=== PATIENT | female | born 1945 | race Caucasian/White ===

== ENCOUNTER → 2020-05-29 14:12 | Outpatient (CLI) | payer MEDICARE, SELFPAY ==
[2020-05-29 16:05] LABS: Add Manual Diff / Slide Review NO; Basophils Absolute Auto 0 /uL (0-100); Eosinophils Absolute Auto 200 /uL (0-450); Eosinophils Percent Auto 4.8 % (2-4); Hematocrit 36.4 % (36-46); Hemoglobin 12.2 g/dL (12.0-16.0); Lymphocytes Absolute Auto 1600 /uL (1100-4500); Mean Corpuscular HGB Conc 33.6 % (30-36); Mean Corpuscular Hemoglobin 31.2 PG (26-34); Mean Corpuscular Volume 92.8 fL (80-100); Monocytes Absolute Auto 400 /uL (0-900); Monocytes Percent Auto 8.1 % (3-14); Neutrophils Absolute Auto 2500 /uL (1500-7000); Neutrophils Percent Auto 53.1 % (50-75); Platelet Count 199 X10^3/uL (150-400); Red Blood Cell Count 3.92 X10^6/uL (4.0-5.2); Red Cell Distribution Width 12.8 % (11.6-14.8); White Blood Cell Count 4.7 X10^3/uL (4.5-11.0)
== END ==
PROVIDERS: PCP Nurse Practitioner; Referring Provider Orthopaedic Surgery; Visit Provider Orthopaedic Surgery
DX: Z01.818 Encounter for other preprocedural examination (principal); Z01.812 Encounter for preprocedural laboratory examination
CPT/HCPCS: 36415; 85025; 93005

== ENCOUNTER → 2020-06-01 15:28 | Outpatient (CLI) | payer MEDICARE, SELFPAY ==
[2020-06-02 07:43] LABS: COVID19 Sendout Not Detected (Not Detect)
== END ==
PROVIDERS: PCP Nurse Practitioner; Visit Provider Physician Assistant
DX: Z11.59 Encounter for screening for other viral diseases (principal)
CPT/HCPCS: 87635

== ENCOUNTER 2020-06-05 11:30 | Observation (INO) | payer MEDICARE, SELFPAY ==
[2020-05-30 08:01] VITALS: BMI 36.1
[2020-06-04] VITALS (15 sets, daily range): BP systolic 92–133; BP diastolic 52–73; PULSE 53–78; RESP 10–18; TEMP 35.9–36.2; O2SAT 92–100; BMI 35.7
--- NOTE | 2020-06-04 12:45 | DI.RAD.S_ITS ---
PROCEDURE: XR PELVIS 1-2V INDICATIONS: Left CHARLENE TECHNIQUE: 1 view of the lower pelvis acquired. COMPARISON: None. FINDINGS: Bones: Patient is status post left hip arthroplasty, with hardware components in expected positions. The hip joint appears congruent. The visualized bony structures appear intact. Soft tissues: Overlying postoperative changes are noted. No suspicious soft tissue densities. IMPRESSION: Expected postsurgical change for left hip arthroplasty. Dictated by: Fara Telles MD, PhD on 06/05/2020 at 14:56 Approved by: Fara Telles MD, PhD on 06/05/2020 at 14:56
[2020-06-04] MEDS: PREGABALIN 75 MG CAPSULE PO (13:54)
[2020-06-04] MEDS: ACETAMINOPHEN 325 MG TABLET 975 MG PO (13:54)
[2020-06-04] MEDS: LACTATED RINGERS 1,000 ML 42 ML IV (13:57)
--- NOTE | 2020-06-04 14:43 | PM.PREOP ---
Pre-operative Note COVID-19 COVID-19 status: Negative Result date/Date tested (Pos, Neg/Pending): 06/02/20 Interval Note History & Physical reviewed/Exam performed by Physician: Yes Changes to H&P: No
--- NOTE | 2020-06-04 15:28 | SUR.OPER ---
Lateral on padded OR bed. Gel axillary roll. Arms secured on padded armboard with pillow supporting top arm. Padded hip positioner braces x4 - anterior and posterior chest and pelvis. Additional gel pad used anterior pelvis. Gel pad under bottom leg from knee to foot and secured with tape over sheet.
[2020-06-04] MEDS: CEFAZOLIN 2 GM/100 ML FROZ.PIGGY IV (15:44)
[2020-06-04] MEDS: TRANEXAMIC ACID 1,000 MG VIAL 1000 MG INJ ×2 (16:21→17:20)
[2020-06-04] MEDS: ROPIVACAINE 0.5% PF 5 MG/ML 20ML VIAL 60 ML INJ (16:22)
[2020-06-04] MEDS: MORPHINE 4 MG/ML INJ INJ (16:22)
[2020-06-04] MEDS: KETOROLAC 30 MG/ML VIAL INJ (16:24)
--- NOTE | 2020-06-04 17:32 | PM.OP.1 ---
Operative Date/Time/Diagnoses Date of procedure: 06/04/20 Time of procedure: 17:32 Pre-op diagnosis: Left hip degenerative joint disease Post-op diagnosis: same Procedure & Clinicians Procedure: Left total hip arthroplasty (CPT code 50270 with diet assistant) Same procedure as scheduled: Yes Indications: Patient is a 74-year-old female with severe left hip DJD. The patient has pain with activities and at rest, limited ambulation and activity tolerance, difficulties with ADLs, and failure of conservative treatment. We have discussed the nature of condition, treatment options, risks and benefits, and patient elects to proceed with total hip arthroplasty and gives informed consent. Surgeon: Alvin Mckeon Command And Control Officer: Kenna Bright Anesthesia Type: General and Spinal Operative Notes Closure Type: primary Prosthetic devices, grafts, tissues, transplants, or devices: Acetabulum: Chaudhari and Nephew R3 acetabular component size 50 mm Femoral component: Chaudhari and Nephew Anthology stem size 8 with standard offset Femoral head: 32 mm + 8 cobalt chrome Estimated Blood Loss (mL): 200 Blood products transfused: none Procedure in detail: After satisfaction induction of anesthetic, and administration of IV antibiotics, the patient was positioned in the lateral decubitus position with all bony prominences well padded and pelvic position secured using a hip polymerization supervisor positioning device. Left hip and lower extremity prepped and draped in the usual sterile fashion, 1st dose of intravenous tranexamic acid was administered, then a longitudinal incision was created centered over the greater trochanter and carried sharply through the skin and subcutaneous tissues down to the fascia alexander which was divided longitudinally and retracted with a Charnley retractor. External rotators visualize, cut, tagged, and retracted posteriorly, then the capsule was cut in a T-type fashion with the corners tagged and retracted. Hip was dislocated and femoral neck cut made according to preoperative templating. Acetabular retractors then placed, and the acetabular labrum and osteophytes were excised. The acetabulum was then sequentially reamed to 49 mm with an excellent circumferential ream and fit with the trial. The trial component was removed and a permanent size 50 mm Chaudhari and Nephew R3 acetabular component was selected, positioned, and impacted with satisfactory position and fixation achieved. Permanent liner was then inserted with the elevated lip directed posteriorly. Soft tissue then removed off the lateral femoral neck in the lateral neck was entered using a box osteotome. T-handled reamers placed down the canal followed by sequential broaching to 8 with the final broach left in place for trial reduction which demonstrated fair leg length, range of motion, and stability characteristics with a 32 mm +0 trial ball. Another trial was performed with a +4 ball which yielded moderately improved stability with good leg length and range of motion. The trial and broach were removed, and a permanent size 8 Chaudhari and Nephew Anthology stem was selected and inserted with excellent position and fixation achieved. Another trial reduction yielded the above characteristics, and another trial reduction was performed with a +8 ball which yielded even better stability characteristics without undue tightness or over lengthening, so the trial ball was exchanged for a permanent 32 mm +8 cobalt chrome ball. The hip was irrigated and reduced and excellent leg length range of motion and stability characteristics were achieved and maintained. Periarticular tissues were infiltrated with ropivacaine and morphine. The hip was copiously irrigated, and the capsule repaired with #2 Ethibond, and the piriformis was repaired back to the greater trochanter with the same. Fascia alexander closed with interrupted #1 Ethibond sutures, and the subcutaneous tissues were closed in 2 layers of 0 Vicryl and 2 0 Vicryl. Skin was closed with lobo and sterile dressings applied. Second dose of tranexamic acid was administered intravenously, and the anesthetic was terminated. Complications: none Post-operative Condition: stable Disposition: PACU Plan for aftercare: Patient will be admitted to the acute care [facility], and anticipate discharge on postop day 1-2 with follow-up in office in 10-14 days. Outpatient physical therapy will be arranged and patient will continue to observe posterior hip precautions. .
--- NOTE | 2020-06-04 18:15 | SUR.PHASEI ---
Report called to floor RN, pt stable, A&O, plan to transfer upstairs in next 15 minutes
--- NOTE | 2020-06-04 18:34 | SUR.PHASEI ---
Pt transported to room 224 in stable condition sitting up in bed talking taking sporadic drinks of water, handoff to RN in room.
[2020-06-04] MEDS: LACTATED RINGERS 1,000 ML 125 ML IV (19:18)
[2020-06-04] MEDS: DULOXETINE 30 MG CAPSULE PO (21:02)
[2020-06-04] MEDS: GABAPENTIN 600 MG TABLET PO (21:02)
[2020-06-04] MEDS: METOPROLOL ER 50 MG TABLET PO (21:02)
[2020-06-04] MEDS: DOCUSATE 100 MG CAPSULE PO (21:02)
[2020-06-04] MEDS: SIMVASTATIN 20 MG TABLET PO (21:02)
[2020-06-05 00:01] VITALS: BP 132/70; PULSE 59; RESP 16; TEMP 35.8; O2SAT 97
--- NOTE | 2020-06-05 02:23 | PC.NURSE ---
2350 Patient is alert and oriented. Has word finding difficulty which she states is chronic related to hx of head injury. Breath sounds CTA with RA sat of 97%. HRR but bradycardic with rate in 50's. Denies nausea. BT present but denies passing flatus as yet. Has voided on bedpan previous shift; denies dysuria, frequency or urgency. Is able to move herself in bed. Not out of bed as yet so gait not assessed. CMS intact except for some residual numbness in soles of bilateral feet. Wearing bilateral calf SCD's. Denies pain. Reports having fallen in past 3 months so fall risk score is high and alarm is activated.
[2020-06-05 03:10] VITALS: BP 125/74; PULSE 67; RESP 16; TEMP 35.9; O2SAT 96
[2020-06-05] MEDS: LACTATED RINGERS 1,000 ML 125 ML IV (03:29)
[2020-06-05 05:32] LABS: Hematocrit 30.9 % (36-46); Hemoglobin 10.4 g/dL (12.0-16.0)
[2020-06-05] MEDS: CEFAZOLIN 2 GM/100 ML FROZ.PIGGY IV (08:09)
[2020-06-05] MEDS: CHOLECALCIFEROL (VITAMIN D3) 1,000 UNIT TABLET 2000 UNIT PO (08:10)
[2020-06-05] MEDS: DOCUSATE 100 MG CAPSULE PO ×2 (08:10→19:15)
[2020-06-05] MEDS: DULOXETINE 30 MG CAPSULE PO ×2 (08:10→19:18)
[2020-06-05] MEDS: MULTIVITAMIN 1 TABLET 1 TAB PO (08:10)
[2020-06-05] MEDS: GABAPENTIN 300 MG CAPSULE PO (08:10)
--- NOTE | 2020-06-05 11:02 | PT.IIE ---
Current Diagnoses Unilateral primary osteoarthritis, left hip (06/04/20) Surgery Performed Operation Date: 06/04/20 14:45 Actual Procedures p Total Hip Arthroplasty(Left) - Alvin Mckeon MD Surgical History (Last Updated 05/30/20 @ 09:46 by Marcia Busch RN) History of 2 sections (Acute) History of arthroplasty of left knee (Acute 2010) History of arthroplasty of right knee (Acute 2009) History of bunionectomy of left great toe (Acute) History of hysterectomy (Acute ~1980) History of lumbar spinal fusion (Acute 2006) History of lumbar spinal fusion (Acute 2006) History of radial keratotomy (Acute) History of right salpingo-oophorectomy (Acute) History of surgery (Acute 2008) Hx of LASIK (Acute) Hx of tonsillectomy (Acute) S/P cervical spinal fusion (Acute 2005) Medical History (Last Updated 05/30/20 @ 09:26 by Marcia Busch RN) Anxiety (Acute) Asthma (Acute) Fall from ground level (Acute 2016) HLD (hyperlipidemia) (Acute) HTN (hypertension) (Acute) Osteoarthritis (Acute) Pre-diabetes (Acute) Seasonal allergies (Acute) Short-term memory loss (Acute) Physical Therapy Inpatient Evaluation/Re-Eval M1 PT/OT-IP Prior Functional Status Start: 06/05/20 12:31 Freq: NEEDED Status: Active Protocol: Document 06/05/20 11:02 AB (Rec: 06/05/20 12:44 AB [email or web address]) Medical Review Prior Functional Status Medical History Reviewed Yes Communication able to make needs known Mobility and Gait pt stated that she is modified independent with all mobilities and ambulation using tripod cane Social History Household Members spouse Living Arrangements House Number of Floors (Floors) Two Floors Number of Stairs To Enter/Railing? pt has 4 steps with L rail ascending to enter the house has a chair lift to get to 2nd level bedroom Home Environment Standard Height Toilet,Walk in Shower,Built-In Shower Seat Home Equipment Front Wheel Walker,Straight Cane,Raised Toilet Seat Without Armrests,Hand Held Shower,Grab Bars In Shower Additional Social History Comment pt has a tripod cane M2 PT-IP Current Condition Start: 06/05/20 12:31 Freq: NEEDED Status: Active Protocol: Document 06/05/20 11:02 AB (Rec: 06/05/20 12:44 AB [email or web address]) Physical Therapy Current Condition Current Condition Evaluation Date 06/05/20 Treatment Diagnosis s/p L CHARLENE posterior approach; difficulty in walking Onset Date 06/04/20 Precautions Posterior Hip Precautions No Hip Flexion > 90 degrees,No Hip Internal Rotation,No Hip Adduction Weight Bearing Status Weight Bearing Status Weight Bear as Tolerated Allowed Weight Bearing Amount (enter % WBAT LLE or #) (%) M3 PT-IP Subjective Start: 06/05/20 12:31 Freq: NEEDED Status: Active Protocol: Document 06/05/20 11:02 AB (Rec: 06/05/20 12:44 AB [email or web address]) Subjective Physical Therapy Visit Type Type Initial Evaluation Visit Start Time 11:02 Visit Stop Time 12:02 Total Visit Minutes 60 Number of WOOD MOLDER Visits 0 Physical Therapy Visit Comments Patient Comments c/o increase pain but agreeable to do PT Therapy Pain Assessment Pain When Pain Assessed At Rest Pain Present Pain Present Pain Reported Location back Intensity 7 Scale Used Numeric (0 - 10) Pain Management Techniques Distraction,Modification of Treatment,Re-positioning, Timing of Activity with Medications M4 PT-IP Mobility and Gait Start: 06/05/20 12:31 Freq: NEEDED Status: Active Protocol: Document 06/05/20 11:02 AB (Rec: 06/05/20 12:44 AB [email or web address]) PT-Bed Mobility Assessment Supine to Sit Supine to Sit Maximum Assistance,1 Person Assistance Sit to Supine Sit to Supine Moderate Assistance,1 Person Assistance Scooting Scooting to Edge of Bed Maximum Assistance PT-Transfer Assessment Sit to and From Stand Sit to and from Stand Maximum Assistance,1 Person Assistance,Use of Upper Extremities Equipment Transfer Assistive Device Gait Belt,Front Wheeled Walker Orthotic/Prosthetic Devices or Brace: No Transfers Transfer Destination Bed,Chair Transfer Technique Stand Step Pivot Transfer Ability Level of Assist Moderate Assistance,Maximum Assistance,1 Person Assistance ,Use of Upper Extremities Comments Mobility Comments pt sitting on chair. pt's spouse in room. educated pt and spouse regarding L hip posterior precautions. Pt with h/o TBI and with difficulty recalling precautions and following directions. completed sit to stand max A and cues. ambulated in room ~ 30 ft mod . (+) LOB posteriorly and to the R during ambulation requiring mod/max A for recovery. completed sit to supine mod A and cues. completed supine to sit max A and cues. pt with increase posterior trunk lean in sitting position and requiring mod to max A for sitting balance. required max A for scooting to EOB. completed sit to stand max A and complete step transfer to chair using FWW max A. educated pt on sit<>stand techniques but pt with difficulty following directions requiring max A to complete task. increase posterior LOB during standing requiring mod to max A to keep trunk forward. instructed pt to push down on FWW for support but pt unable to comprehend. assisted pt to the chair requiring max A for controlled descent. pt's spouse stated that pt has balance problems even prior to surgery due to her head injury. positioned pt on chair. call light and table placed within reach. Gait Assessment Gait Gait Assistance Required: Moderate Assistance,Maximum Assistance,1 Person Assist Distance (Feet) 30 Able to Maintain Weight Bearing Status Yes During Gait Assistive Devices Assistive Device Gait Belt,Front Wheeled Walker Orthotic/Prosthetic Devices or Brace: No Gait Deviations General Gait Pattern Antalgic,Decreased Stride Length,Decreased Feet Clearance,Step-to Gait Factors Limiting Gait Function Factors Limiting Gait Function Decreased Activity Tolerance, Decreased Sensation,Decreased Strength,Difficulty Following Directions,Limited Range of Motion,Pain,Poor Balance,Poor Safety Awareness PT-Balance Assessment Sitting Balance and Reactions Static Sitting Balance Ability Fair Dynamic Sitting Balance Ability Fair Standing Balance and Reactions Static Standing Balance Ability Poor Dynamic Standing Balance Ability Poor Device Used FWW M5 PT-IP Objective Assessments Start: 06/05/20 12:31 Freq: NEEDED Status: Active Protocol: Document 06/05/20 11:02 AB (Rec: 06/05/20 12:44 AB [email or web address]) Orientation Orientation/Cognition Level of Alertness Alert Orientation Name,Place,Situation Safety Awareness Decreased Safety Awareness Memory Description Short Term Impaired Gross Range of Motion Lower Extremity ROM Assessment Within Functional Limits Strength Lower Extremity Strength Assessment Left Impaired Hip 3+/5 Knee 4-/5 Sensation Assessment Sensation Light Touch Impaired Proprioception (Position) Impaired Comments Sensation Comments BLE decrease BLE Muscle Tone Muscle Tone WNL Yes M6 PT-IP Treatment Start: 06/05/20 12:31 Freq: NEEDED Status: Active Protocol: Document 06/05/20 11:02 AB (Rec: 06/05/20 12:44 AB [email or web address]) Physical Therapy Treatment Education Education Provided Precautions,Weight Bearing Status,Post-Op Packet,Safety M7 PT-IP Assessment and Plan Start: 06/05/20 12:31 Freq: NEEDED Status: Active Protocol: Document 06/05/20 11:02 AB (Rec: 06/05/20 12:44 AB [email or web address]) PT Summary Assessment and Plan Potential Rehabilitation Potential Good Status of Condition at Evaluation Evolving Summary Impairments Pain,ROM,Strength,Balance, Coordination,Sensation,Tone, Cognition,Bed Mobility, Transfers,Gait,Activity Tolerance Assessment Summary pt requring mod to max A with mobility using FWW and with LOB during standing and ambulation. pt plans to go home with spouse to assist but at this time may require SNF rehab. will continue to assess progress and will conduct caregiver training when appropriate as well as stair climbing training. Goals Bed Mobility Goal Contact Guard Assistance Transfer Goal Contact Guard Assistance,Front Wheeled Walker Gait Goal Contact Guard Assistance,Front Wheel Walker Gait Distance 150 Other Goals up/down 4 steps L rail CGA Days to Meet Goals 5 Frequency of Treatment Frequency Of Treatment Twice a Day Treatment Plan Physical Therapy Treatment Plan Bed Mobility Training,Transfer Training,Gait Training, Therapeutic Exercise,Balance Retraining,Post Op Education, Discharge Planning,Hot or Cold Pack,Neuromuscular Re-ed, Coordination Retraining,Manual Therapy Recommendations To Nursing Amount of Assist Needed 1 Person Assist Discharge Recommendations PT Discharge Recommendations Home with 21/03 Assist,Home Health,SNF Rehab Transportation Needs at Discharge Private Vehicle,Wheelchair/ Cabulance
[2020-06-05] MEDS: OXYCODONE IR 5 MG TABLET PO ×3 (11:26→21:14)
--- NOTE | 2020-06-05 12:40 | PM.PNPO.1 ---
Subjective Subjective Date Patient Seen: 06/05/20 Time Patient Seen: 12:40 Interval history: Pain [id number]. Denies fever chills. No nausea /vomiting. Patient did have balance issues with physical therapy this morning. She does not yet feel stable on her feet to go home. Patient's is home to assist her. They have 4 steps into her house. Exam Vital Signs (past 8 hours): Oxygen Delivery Method Room Air Oxygen Flow Rate 0 Narrative Exam Narrative: Pleasant 74-year-old female resting comfortably in bed in no apparent distress. Left hip dressing is clean, dry and intact. Motor functions intact distal bilateral lower extremities. Sensation grossly intact to light touch bilateral lower extremities. Objective Labs Result Diagrams: 06/05/20 05:03 Labs: Laboratory Results - last 24 hr 06/05/20 05:03 Hgb 10.4 L Hct 30.9 L Assessment & Plan Post-op Postoperative Procedures: Procedures Operation Date: 06/04/20 14:45 Actual Procedures Side Surgeon p Total Hip Arthroplasty Left Alvin Mckeon MD Postop day 1 status post left total hip arthroplasty. Mobilize with physical therapy. Posterior hip precautions. Lovenox added. Increase dose of Tylenol. Metformin added b.i.d.. Likely discharge home tomorrow.
[2020-06-05] MEDS: METFORMIN HCL 500 MG TABLET PO ×2 (12:43→19:18)
[2020-06-05] MEDS: ENOXAPARIN 40 MG/0.4 ML SYRINGE SUBCUT (12:43)
--- NOTE | 2020-06-05 13:20 | PT.IPTN ---
Current Diagnoses Unilateral primary osteoarthritis, left hip (06/05/20) Surgery Performed Operation Date: 06/04/20 14:45 Actual Procedures p Total Hip Arthroplasty(Left) - Alvin Mckeon MD Physical Therapy Treatment Note M2 PT-IP Current Condition Start: 06/05/20 12:31 Freq: NEEDED Status: Active Protocol: Document 06/05/20 11:02 AB (Rec: 06/05/20 12:44 AB [email or web address]) Physical Therapy Current Condition Current Condition Evaluation Date 06/05/20 Treatment Diagnosis s/p L CHARLENE posterior approach; difficulty in walking Onset Date 06/04/20 Precautions Posterior Hip Precautions No Hip Flexion > 90 degrees,No Hip Internal Rotation,No Hip Adduction Weight Bearing Status Weight Bearing Status Weight Bear as Tolerated Allowed Weight Bearing Amount (enter % WBAT LLE or #) (%) M3 PT-IP Subjective Start: 06/05/20 12:31 Freq: NEEDED Status: Active Protocol: Document 06/05/20 13:20 AB (Rec: 06/05/20 15:49 AB [email or web address]) Subjective Physical Therapy Visit Type Type Treatment Note Visit Start Time 13:20 Visit Stop Time 14:17 Total Visit Minutes 57 Number of PROGRESS CLERK Visits 0 Physical Therapy Visit Comments Patient Comments pt is agreeable to do PT Therapy Pain Assessment Pain When Pain Assessed At Rest Pain Present Pain Present Pain Reported Location left hip Scale Used pain scale not given but stated better than this morning Pain Management Techniques Distraction,Modification of Treatment,Re-positioning, Timing of Activity with Medications M4 PT-IP Mobility and Gait Start: 06/05/20 12:31 Freq: NEEDED Status: Active Protocol: Document 06/05/20 13:20 AB (Rec: 06/05/20 15:49 AB [email or web address]) PT-Bed Mobility Assessment Supine to Sit Supine to Sit Standby Assistance Sit to Supine Sit to Supine Moderate Assistance,1 Person Assistance Scooting Scooting to Edge of Bed Moderate Assistance PT-Transfer Assessment Sit to and From Stand Sit to and from Stand Moderate Assistance,Maximum Assistance,1 Person Assistance ,Use of Upper Extremities Equipment Transfer Assistive Device Gait Belt,Front Wheeled Walker Orthotic/Prosthetic Devices or Brace: No Comments Mobility Comments pt supine in bed and completed supine to sit SBA. pt was able to sit on EOB CGA. reviewed hip precautions and pt continues to require cues to recall. reviewed techniques for sit <> stand and completed from EOB x 10 reps with rest breaks in between. pt requiring mod to max A and max cues. caregiver training conducted. educated spouse on how to use safety belt and how to assist pt. spouse assisted pt with sit <> stand and was able to assist safely. completed standing balance/tolerance using fWW for support; static standing activities: increase COG and positioning and correcting posterior trunk LOB. educated on proper use of FWW for support. pt required min to mod A to maintain standing balance using FWW. pt ambulated in room with spouse assisting ~ 30 ft and ambulated to chair mod A and cues. completed sit <>stand from chair x 5 reps mod A and max cues. pt transferred back to bed using FWW mod A and cues. completed sit to supine mod A and cues for elevating LLE. positioned pt in bed. call light and table placed within reach. Gait Assessment Gait Gait Assistance Required: Moderate Assistance,1 Person Assist Distance (Feet) 30 Able to Maintain Weight Bearing Status Yes During Gait Assistive Devices Assistive Device Gait Belt,Front Wheeled Walker Orthotic/Prosthetic Devices or Brace: No Gait Deviations General Gait Pattern Antalgic,Decreased Stride Length,Decreased Feet Clearance Factors Limiting Gait Function Factors Limiting Gait Function Decreased Activity Tolerance, Decreased Sensation,Decreased Strength,Difficulty Following Directions,Limited Range of Motion,Pain,Poor Balance,Poor Safety Awareness M5 PT-IP Objective Assessments Start: 06/05/20 12:31 Freq: NEEDED Status: Active Protocol: Document 06/05/20 11:02 AB (Rec: 06/05/20 12:44 AB [email or web address]) Orientation Orientation/Cognition Level of Alertness Alert Orientation Name,Place,Situation Safety Awareness Decreased Safety Awareness Memory Description Short Term Impaired Gross Range of Motion Lower Extremity ROM Assessment Within Functional Limits Strength Lower Extremity Strength Assessment Left Impaired Hip 3+/5 Knee 4-/5 Sensation Assessment Sensation Light Touch Impaired Proprioception (Position) Impaired Comments Sensation Comments BLE decrease BLE Muscle Tone Muscle Tone WNL Yes M6 PT-IP Treatment Start: 06/05/20 12:31 Freq: NEEDED Status: Active Protocol: Document 06/05/20 13:20 AB (Rec: 06/05/20 15:49 AB [email or web address]) Physical Therapy Treatment Education Education Provided Precautions,Safety M7 PT-IP Assessment and Plan Start: 06/05/20 12:31 Freq: NEEDED Status: Active Protocol: Document 06/05/20 13:20 AB (Rec: 06/05/20 15:49 AB [email or web address]) PT Summary Assessment and Plan Potential Rehabilitation Potential Good Summary Impairments Pain,ROM,Strength,Balance, Coordination,Sensation,Tone, Cognition,Bed Mobility, Transfers,Gait,Activity Tolerance Progress Towards Goals Slow Progress due to Medical Issues,Slow Progress due to Activity Tolerance Assessment Summary caregiver training conducted but further training is needed . pt also has to complete stair climbing training prior to d/c. pt plans to go home with spouse to assist her. will continue to assess progress. Goals Bed Mobility Goal Contact Guard Assistance Transfer Goal Contact Guard Assistance,Front Wheeled Walker Gait Goal Contact Guard Assistance,Front Wheel Walker Gait Distance 150 Other Goals up/down 4 steps L rail CGA Days to Meet Goals 5 Frequency of Treatment Frequency Of Treatment Twice a Day Treatment Plan Physical Therapy Treatment Plan Bed Mobility Training,Transfer Training,Gait Training, Therapeutic Exercise,Balance Retraining,Post Op Education, Discharge Planning,Hot or Cold Pack,Neuromuscular Re-ed, Coordination Retraining,Manual Therapy Recommendations To Nursing Amount of Assist Needed 1 Person Assist Discharge Recommendations PT Discharge Recommendations Home with 21/03 Assist,Home Health,SNF Rehab Transportation Needs at Discharge Private Vehicle,Wheelchair/ Cabulance
[2020-06-05] MEDS: ACETAMINOPHEN 325 MG TABLET 975 MG PO ×2 (14:32→23:34)
--- NOTE | 2020-06-05 15:25 | CM.IDA ---
Initial DCP Assessment Note Pt is a 74yo female, resident of [place], now POD#1 from left hip surgery w/ Dr Mckeon PCP: Celi Morgan Payer: YAMILET/YIMI Reviewed chart, pt discussed in multidisciplinary rounds this morning. Therapy has cleared pt for return home w/family to assist and pt has planned for home, DC likely this afternoon vs tomorrow. Patient eager to return home w/her supportive spouse, caregiver training scheduled this afternoon. No needs expected from DC planning team although will remain available in case this changes today. JENNIFER Enriquez
[2020-06-05] MEDS: SIMVASTATIN 20 MG TABLET PO (19:15)
[2020-06-05] MEDS: GABAPENTIN 600 MG TABLET PO (19:15)
[2020-06-05 19:16] VITALS: BP 125/62; PULSE 87
[2020-06-05] MEDS: METOPROLOL ER 50 MG TABLET PO (19:16)
[2020-06-05 19:20] VITALS: BP 125/62; PULSE 87; RESP 16; TEMP 36.9; O2SAT 97
[2020-06-05 19:30] VITALS: BP 125/62; PULSE 85; RESP 17; TEMP 37.2; O2SAT 96
[2020-06-05] MEDS: SODIUM CHLORIDE 0.9% FLUSH 10 ML IV (21:17)
[2020-06-06 00:45] VITALS: BP 130/50; PULSE 86; RESP 18; TEMP 37.3; O2SAT 96
--- NOTE | 2020-06-06 02:19 | PC.NURSE ---
2343 Patient is alert and oriented. Breath sounds CTA with RA sat of 96%. HRR. Denies nausea. BT present and is passing flatus. Dressing to left hip is CDI. Does complain of 4/10 pain in hip and was medicated at shift change with scheduled Tylenol and declines other pain medication at this time. Denies dysuria, frequency or urgency with urination; voiding on toilet. Is able to move herself in bed. Using walker and 1 assist when out of bed. Refusing SCD's tonight so reminded to ankle wave when awake; patient verbalizes understanding. Reports having fallen in past 3 months so fall risk score is high and bed alarm is activated. CMS is intact bilaterally.
[2020-06-06] MEDS: ACETAMINOPHEN 325 MG TABLET 975 MG PO (06:55)
[2020-06-06 08:21] VITALS: BP 129/55; PULSE 77; RESP 18; TEMP 37.2; O2SAT 97
[2020-06-06] MEDS: OXYCODONE IR 10 MG TABLET PO ×2 (08:29→12:48)
[2020-06-06] MEDS: DULOXETINE 30 MG CAPSULE PO (08:29)
[2020-06-06] MEDS: METFORMIN HCL 500 MG TABLET PO (08:33)
[2020-06-06] MEDS: MULTIVITAMIN 1 TABLET 1 TAB PO (08:33)
[2020-06-06] MEDS: DOCUSATE 100 MG CAPSULE PO (08:33)
[2020-06-06] MEDS: ENOXAPARIN 40 MG/0.4 ML SYRINGE SUBCUT (08:34)
[2020-06-06] MEDS: GABAPENTIN 300 MG CAPSULE PO (08:34)
[2020-06-06] MEDS: CHOLECALCIFEROL (VITAMIN D3) 1,000 UNIT TABLET 2000 UNIT PO (08:34)
--- NOTE | 2020-06-06 10:02 | P.DS_ITS ---
History of Present Illness History of Present Illness Date Patient Seen: 06/06/20 Time Patient Seen: 10:02 Chief complaint: Left Total Hip Arthroplasty *OPB* Narrative: Please see HPI previously recorded in the chart. Discharge Providers Provider Date of admission: 06/05/20 11:30 Discharge Date: 06/06/20 Primary care physician: RODDY Thayer Consults: 06/04/20 18:39 Consult to Discharge Planning Routine Comment: Consult to Physical Therapy Evaluate & Treat Comment: Physician Instructions: post op CHARLENE protocol Consult to Respiratory Therapy Evaluate & Treat Comment: Physician Instructions: Evaluate and treat Discharge provider: Kenna Bright PA-C Summary Hospital Course Discharge Diagnosis: s/p right CHARLENE Hospital Course: Patient is a 74-year-old female with severe left hip DJD. The patient has pain with activities and at rest, limited ambulation and activity tolerance, difficulties with ADLs, and failure of conservative treatment. We have discussed the nature of condition, treatment options, risks and benefits, and patient elects to proceed with total hip arthroplasty and gives informed c onsent. She underwent a left CHARLENE with Dr. Mckeon which she tolerated well without complications. She was transferred to the acute care floor where she has been progressing postoperatively. She mobilized slowly with PT on POD#1 and had some issues with pain control. She has been improving in her mobility and pain is now well controlled with Oxycodone. Her is available as postop caregiver. Peyton aquino is receiving Lovenox x10 days total for DVT prophylaxis. Pending stair training later today she is stable for discharge to home. Status at Discharge Cognitive/behavioral status at discharge: oriented Functional status at discharge: uses cane/walker Overall status at discharge: patient is progressing back to baseline Exam Vital Signs (past 8 hours): - 06/06/20 08:21 Temperature 99.0 F Pulse Rate 77 Respiratory Rate 18 Blood Pressure 129/55 L Pulse Oximetry 97 Oxygen Delivery Method Room Air Oxygen Flow Rate 0 Narrative Exam Narrative: 74 year old female resting in bed. Alert and oriented in no acute distress. Dressing in place is clean and dry, peeling badly at edges. New dressing applied. Patient able to perform straight leg raise. Calves are soft. Palpable pedal pulse. Objective Labs Result Diagrams: 06/05/20 05:03 Discharge Plan Discharge Plan Patient Disposition: Home Discharge orders & Medications Prescriptions: New acetaminophen 325 mg Tablet 975 mg PO Q8H Qty: 40 RF: 0 docusate sodium [DOK] 100 mg Capsule 100 mg PO BID Qty: 40 RF: 0 enoxaparin 40 mg/0.4 mL syringe 40 mg SUBCUT DAILY 8 Days Qty: 0.4 RF: 0 Continued acetaminophen [Acetaminophen Extra Strength] 500 mg Tablet 500 mg PO Q6H PRN (Reason: Pain) RF: 0 gabapentin 300 mg Capsule 300 mg PO SEEINSTR RF: 0 duloxetine 30 mg Capsule,Delayed Release(Dr/Ec) 30 mg PO BID RF: 0 simvastatin 20 mg Tablet 20 mg PO BEDTIME RF: 0 metformin 500 mg tablet 500 mg PO BID RF: 0 metoprolol succinate 50 mg tablet extended release 24 hr 50 mg PO BEDTIME RF: 0 multivitamin capsule 1 cap PO DAILY RF: 0 cholecalciferol (vitamin D3) 2,000 unit capsule 2,000 unit PO DAILY RF: 0 Discontinued hydrocodone-acetaminophen 10-325 mg tablet 2 tab PO Q8H PRN (Reason: Pain) RF: 0 Follow up/Referrals: Alvin Mckeon MD [Physician] - Diet/Activity/Treatments Diet: Diet as Tolerated Activity: Posterior hip precautions. Use a front wheel walker. Frequent short walks. Cold/Heat Therapy: Ice packs as needed. Skin/Wound/Dressing Care Report to your healthcare provider any signs of infection, such as:: chills, fever, night sweats, unusual drainage and unusual redness Dressing: Dressing is to remain in place for 2 weeks. Please call the office if this becomes saturated. Visit Report/Discharge Packet Instructions: DI for Hip Replacement, DI for Prescription Opioid Use Visit Report Forms: Patient Portal/API, Stroke Signs & Symptoms Discharge Data Primary Care Provider: Celi Morgan Attending Provider: Alvin Mckeon Admit Date/Time: 06/05/20 11:30
--- NOTE | 2020-06-06 10:37 | PT.IPTN ---
Current Diagnoses Unilateral primary osteoarthritis, left hip (06/05/20) Surgery Performed Operation Date: 06/04/20 14:45 Actual Procedures p Total Hip Arthroplasty(Left) - Alvin Mckeon MD Physical Therapy Treatment Note M2 PT-IP Current Condition Start: 06/05/20 12:31 Freq: NEEDED Status: Active Protocol: Document 06/05/20 11:02 AB (Rec: 06/05/20 12:44 AB [email or web address]) Physical Therapy Current Condition Current Condition Evaluation Date 06/05/20 Treatment Diagnosis s/p L CHARLENE posterior approach; difficulty in walking Onset Date 06/04/20 Precautions Posterior Hip Precautions No Hip Flexion > 90 degrees,No Hip Internal Rotation,No Hip Adduction Weight Bearing Status Weight Bearing Status Weight Bear as Tolerated Allowed Weight Bearing Amount (enter % WBAT LLE or #) (%) M3 PT-IP Subjective Start: 06/05/20 12:31 Freq: NEEDED Status: Active Protocol: Document 06/06/20 10:37 AB (Rec: 06/06/20 13:35 AB [email or web address]) Subjective Physical Therapy Visit Type Type Treatment Note Visit Start Time 10:37 Visit Stop Time 11:31 Total Visit Minutes 54 Number of APPLICATION DEVELOPMENT CONSULTANT Visits 0 Physical Therapy Visit Comments Patient Comments pt is agreeable to do PT; spouse in room for caregiver training Therapy Pain Assessment Pain When Pain Assessed At Rest Pain Present Pain Present Pain Reported Location left hip Intensity 3 Scale Used Numeric (0 - 10) Pain Management Techniques Modification of Treatment,Re- positioning,Timing of Activity with Medications M4 PT-IP Mobility and Gait Start: 06/05/20 12:31 Freq: NEEDED Status: Active Protocol: Document 06/06/20 10:37 AB (Rec: 06/06/20 13:35 AB [email or web address]) PT-Bed Mobility Assessment Supine to Sit Supine to Sit Standby Assistance Sit to Supine Sit to Supine Moderate Assistance,1 Person Assistance PT-Transfer Assessment Sit to and From Stand Sit to and from Stand Minimal Assistance,Moderate Assistance,Maximum Assistance, 1 Person Assistance,Use of Upper Extremities Equipment Transfer Assistive Device Gait Belt,Front Wheeled Walker Orthotic/Prosthetic Devices or Brace: No Comments Mobility Comments caregiver training conducted. spouse was able to assist pt safely with bed mobility, transfers, ambulation and stair climbing. educated on techniques and how to cue pt. pt completed supine to sit SBA . spouse was able to cue pt. spouse was able to put safety belt on pt and ambulated with pt in room using FWW. pt was able to ambulate in the hallway ~ 75 ft using FWW CGA to min A. educated pt and spouse on how to do stairs and completed safely. pt with difficulty with sit<>stand from w/c. educated pt and spouse again on techniques and pt completed with mod/max A and max cues. pt completed x 5 reps. pt requested to go back to bed and ambulated from w/c to bed using FWW CGA. pt completed sit to supine with spouse assisting and providing cues. positioned pt on bed. pt and spouse without further concerns. call light and table placed within reach. Gait Assessment Gait Gait Assistance Required: Contact Guard Assist,Minimum Assistance Distance (Feet) 75 Able to Maintain Weight Bearing Status Yes During Gait Assistive Devices Assistive Device Gait Belt,Large Based Quad Cane Orthotic/Prosthetic Devices or Brace: No Gait Deviations General Gait Pattern Decreased Stride Length, Decreased Feet Clearance Factors Limiting Gait Function Factors Limiting Gait Function Decreased Activity Tolerance, Decreased Strength,Difficulty Following Directions,Pain,Poor Balance,Poor Safety Awareness Stair Climbing Assessment Evaluation Level of Assist On Stairs Minimal Assistance,Moderate Assistance,1 Person Assistance Devices Stair Climbing Assistive Devices Left Railing Technique/Endurance Stair Climbing Direction Ascend and Descend Stair Climbing Technique Step to Step Number of Steps Climbed 3 Stair Climbing Set # Repetitions (reps) 1 Comments Stair Climbing Comments pt completed up/down steps holding on L rail with B hands . spouse was able to assist pt safely M5 PT-IP Objective Assessments Start: 06/05/20 12:31 Freq: NEEDED Status: Active Protocol: Document 06/05/20 11:02 AB (Rec: 06/05/20 12:44 AB [id number]) Orientation Orientation/Cognition Level of Alertness Alert Orientation Name,Place,Situation Safety Awareness Decreased Safety Awareness Memory Description Short Term Impaired Gross Range of Motion Lower Extremity ROM Assessment Within Functional Limits Strength Lower Extremity Strength Assessment Left Impaired Hip 3+/5 Knee 4-/5 Sensation Assessment Sensation Light Touch Impaired Proprioception (Position) Impaired Comments Sensation Comments BLE decrease BLE Muscle Tone Muscle Tone WNL Yes M6 PT-IP Treatment Start: 06/05/20 12:31 Freq: NEEDED Status: Active Protocol: Document 06/06/20 10:37 AB (Rec: 06/06/20 13:35 AB [id number]) Physical Therapy Treatment Education Education Provided Precautions,Safety M7 PT-IP Assessment and Plan Start: 06/05/20 12:31 Freq: NEEDED Status: Active Protocol: Document 06/06/20 10:37 AB (Rec: 06/06/20 13:35 AB [email or web address]) PT Summary Assessment and Plan Potential Rehabilitation Potential Good Summary Impairments Pain,ROM,Strength,Balance, Coordination,Sensation,Tone, Cognition,Bed Mobility, Transfers,Gait,Activity Tolerance Progress Towards Goals Slow Progress due to Medical Issues,Slow Progress due to Activity Tolerance Assessment Summary caregiver training conducted and spouse was able to assist pt safely. pt will need homehealth PT at this time and eventually outpt PT. Pt may go home when medically stable. Pt and spouse without further concerns regarding mobility/PT. Goals Bed Mobility Goal Contact Guard Assistance Transfer Goal Contact Guard Assistance,Front Wheeled Walker Gait Goal Contact Guard Assistance,Front Wheel Walker Gait Distance 150 Other Goals up/down 4 steps L rail CGA Days to Meet Goals 5 Frequency of Treatment Frequency Of Treatment Twice a Day Treatment Plan Physical Therapy Treatment Plan Bed Mobility Training,Transfer Training,Gait Training, Therapeutic Exercise,Balance Retraining,Post Op Education, Discharge Planning,Hot or Cold Pack,Neuromuscular Re-ed, Coordination Retraining,Manual Therapy Recommendations To Nursing Amount of Assist Needed 1 Person Assist Discharge Recommendations PT Discharge Recommendations Home with 21/03 Assist,Home Health Transportation Needs at Discharge Private Vehicle
--- NOTE | 2020-06-06 12:42 | CM.DPNOTE ---
DC Note Reviewed DCP w/Ortho team, therapy team and RN Mona; no needs from this [employer] at this time, cleared for return home as expected. Patient eager to return home w/supportive spouse- home to [place]
--- NOTE | 2020-06-06 13:27 | PC.NURSE ---
pt left fprior to signing dc plan although we ( pt/spouse and this rn) had been reviewing dc plans entire shift prior to this- dressing was changed but not to aquacell prior to pt leaving and she also left her glasses at bedside- did attempt a cell phone call one to her spouses cell phone and one to her cell to call back - will give acute care OFFICE ADMIN information and potentially mail- but her and spouse were very comfortable with dc plan- pain well controlled with use of intermittent oxycodone
== END 2020-06-06 13:36 | disposition home or self-care (01) ==
LOC: OR 14:21 → AC 14:21
PROVIDERS: Admitting Provider Physician Assistant Surgical; PCP Nurse Practitioner; Referring Provider Orthopaedic Surgery; Visit Provider Orthopaedic Surgery
PROC: 0SRB0JZ Replacement of Left Hip Joint with Synthetic Substitute, Open Approach (ICD-10-PCS; CPT 27130; principal; 2020-06-04 14:45)
DX: M16.12 Unilateral primary osteoarthritis, left hip (principal); F41.9 Anxiety disorder, unspecified; R73.03 Prediabetes; I10 Essential (primary) hypertension; E78.5 Hyperlipidemia, unspecified; Z79.84 Long term (current) use of oral hypoglycemic drugs; J45.909 Unspecified asthma, uncomplicated; M81.0 Age-related osteoporosis without current pathological fracture; E66.9 Obesity, unspecified; Z68.35 Body mass index [BMI] 35.0-35.9, adult
CPT/HCPCS: 27130; 36415; 36592; 72170; 85014; 85018; 97162; 97530; C1776; G0378; J0690; J1100; J1650; J1885; J2250; J2270; J2274; J2405; J2704; J3010

== ENCOUNTER → 2022-04-26 09:59 | Outpatient (CLI) | payer MEDICARE, SELFPAY ==
[2020-06-04 18:42] VITALS: BMI 35.7
[2022-04-26 11:40] LABS: COVID19 -Nasal RAPID Negative (Negative)
== END ==
PROVIDERS: PCP Nurse Practitioner; Referring Provider Orthopaedic Surgery; Visit Provider Orthopaedic Surgery
DX: Z20.822 Contact with and (suspected) exposure to COVID-19 (principal)
CPT/HCPCS: 87635; C9803

== ENCOUNTER 2022-04-27 12:36 | Day surgery (SDC) | payer MEDICARE, SELFPAY ==
[2020-06-04 18:42] VITALS: BMI 35.7
[2022-04-20 08:28] VITALS: BMI 36.7
[2022-04-27] VITALS (21 sets, daily range): BP systolic 90–137; BP diastolic 37–71; PULSE 74–93; RESP 9–22; TEMP 36.1–36.6; O2SAT 93–100; BMI 36.7
--- NOTE | 2022-04-27 | DI.RAD.S_ITS ---
PROCEDURE: XR HIP W PEL IF DONE RT 2V INDICATIONS: POST OP RT HIP TECHNIQUE: 2 view(s) of the hip acquired. COMPARISON: None. FINDINGS: Bones: Patient is status post right hip arthroplasty, with hardware components in expected positions. The hip joint appears congruent. The visualized bony structures appear intact. Prior left hip arthroplasty changes and partially imaged lumbar spine fusion hardware. Soft tissues: Overlying postoperative changes are noted. No suspicious soft tissue densities. IMPRESSION: Postsurgical changes from right hip arthroplasty without definite radiographic evidence of acute complication. Dictated by: James Frances M.D. on 04/27/2022 at 17:32 Approved by: James Frances M.D. on 04/27/2022 at 17:33
[2022-04-27] MEDS: ACETAMINOPHEN 325 MG TABLET 975 MG PO (13:11)
[2022-04-27] MEDS: PREGABALIN 75 MG CAPSULE PO (13:11)
[2022-04-27] MEDS: LACTATED RINGERS 1,000 ML 42 ML IV ×2 (13:13→19:04)
[2022-04-27] MEDS: VANCOMYCIN 1,000 MG/200 ML PIGGYBACK 200 MG IV (13:14)
--- NOTE | 2022-04-27 13:23 | PM.PREOP ---
Pre-operative Note COVID-19 COVID-19 status: Negative Interval Note History & Physical reviewed/Exam performed by Physician: Yes Changes to H&P: No
--- NOTE | 2022-04-27 13:24 | P.OP_ITS ---
Operative Date/Time/Diagnoses Date of procedure: 04/27/22 Time of procedure: 14:00 Pre-op diagnosis: right hip OA Post-op diagnosis: same Procedure & Clinicians Procedure: Right total hip arthroplasty posterior approach, hip abductor repair Same procedure as scheduled: Yes Indications: The patient has had progressively worsening right hip pain with radiographic changes consistent with arthritis. Non-operative management has failed and the patient has requested total hip replacement. The risks, benefits and alternatives to surgery were discussed with the patient prior to proceeding. Risks discussed included, but were not limited to, failure to relieve pain, leg length discrepancy, dislocation, stiffness, infection, nerve damage, deep venous thrombosis, pulmonary embolism, stroke, coma, heart attack, permanent paralysis and , as well as the potential need for eventual revision of the prosthetic. Surgeon: Maria L Chaudhari Plastic Block Boiler Reliner: Trae Hodegs Anesthesia Type: General Operative Notes Findings: Severe left hip osteoarthritis, substantial hip abductor tear with multiple tendon involvement with significant retraction and poor quality tendon, adequate stability, soft acetabulum but adequate fixation Closure Type: primary Specimen(s): none sent Prosthetic devices, grafts, tissues, transplants, or devices: Chaudhari and Nephew 54 Redapt, size 8 standard offset anthology, neutral poly liner, +0 femoral neck Oxinium, one 6.5mm screw Applied: drain(s) Estimated Blood Loss (mL): 600 Blood products transfused: none Procedure in detail: The patient was seen in the pre-operative area, where the patient identified the right hip as the operative site and this was marked with my initials. The patient received pre-operative antibiotics and was taken to the operating room and placed on the operative table in the left lateral decubitus position after satisfactory anesthesia. A multimedia production assistant out was performed. The right leg was prepared from the ankle to the iliac crest with ChloroPrep in the usual fashion and draped through sterile drapes. The hip was approached through an approximately 20 cm incision centered over the greater trochanter and curving gently posteriorly as it went proximally. This was carried sharply to the fascia alexander, which was divided and retracted with a self retaining retractor. The trochanteric bursa was excised with care being taken to avoid the sciatic nerve, which was identified and protected throughout the case. There was severe tearing in the hip abductors and a markedly abnormal trochanter. There Was essentially a bare trochanter with marked thickening of the trochanteric bursa and substantial fluid. The short external rotators were incised and the capsulomuscular flap was raised and tagged for later repair. She had substantial bleeding throughout the case especially from the canal. The hip was dislocated, and a femoral neck osteotomy performed approximately 15 mm above the lesser trochanter. Retractors were placed around the femur. The canal was opened with a box cutting osteotome, followed by a T handled reamer and a lateralizing reamer. The chili pepper broach was then used, followed by sequential broaching until there was good stability of the broach in the femur. Meticulous hemostasis was performed but there was substantial bleeding especially from the canal. Retractors were placed to expose the acetabulum. The labrum and central soft tissues were removed. Reaming was performed initially going up in 2 mm increments, then 1 mm increments until good bite was obtained with an odd sized reamer. The cup 1 mm larger than the last reamer was then inserted using the appropriate anteversion guides. It was further stabilized with a screw. A trial neutral liner was placed. The broach was placed in the canal. A trial head and neck were then placed and the hip relocated and checked for leg length and stability. An intraoperative film confirmed the component position and no evidence of fracture. The patient was stable in the position of sleep, of squatting, and could be put through a range of motion with 45 degrees internal rotation without dislocation. At 90 degrees flexion, internal rotation to 70? was possible before dislocation. This was felt to be satisfactory and the appropriate components were opened, and the trials were removed. The acetabular liner was impacted into position. The final stem was then impacted into the prepared femoral canal. A brief Betadine soak was performed while trialing with head options. The hip was meticulously irrigated with normal saline. Finally the femoral head was impacted onto the stem. The acetabulum was cleared of all material and the hip relocated one final time. Next attention was directed at the abductor repair. A suture anchor was opened and placed in the trochanter. Total of 4 stitches were placed into the hip abductors in order to provide an abductor repair. The tissue was of relatively poor quality. Best possible repair available was achieved. The capsulomuscular flap was then repaired to the greater trochanter though an awl hole using the tag sutures. The short external rotators were repaired with a nonabsorbable suture. A deep drain was placed and brought out anteriorly. The fascia alexander was closed with Vicryl. The subcutaneous layer was closed with barbed sutures and SteriStrips. A Slava dressing was applied and the patient was taken to recovery having tolerated the procedure well. Complications: none Post-operative Condition: stable Disposition: Acute Care Plan for aftercare: The patient will be maintained on a standard total hip replacement protocol with weight bearing as tolerated and posterior hip precautions. The patient will receive Aspirin and sequential compression devices for DVT prophylaxis. The patient will be discharged home when safe for the home environment.
[2022-04-27] MEDS: CEFAZOLIN 2 GM/100 ML PREMIX 100 ML IV ×2 (14:00→21:41)
[2022-04-27] MEDS: TRANEXAMIC ACID 1,000 MG VIAL 1000 MG INJ ×2 (14:00→16:25)
--- NOTE | 2022-04-27 14:24 | SUR.OPER ---
Lateral on padded OR bed. Gel axillary roll. Arms secured on padded armboard with pillow supporting top arm. Padded hip positioner braces x4 - anterior and posterior chest and pelvis. Additional gel pad used anterior pelvis. Gel pad under bottom leg from knee to foot and secured with tape over sheet. POSITION APPROVED BY SURGEON AND ANESTHESIA
[2022-04-27] MEDS: BUPIVACAINE 0.25% (PF) 60 ML, EPINEPHrine 0.3 MG INJ (14:33)
--- NOTE | 2022-04-27 15:14 | DI.RAD.S_ITS ---
PROCEDURE: XR PELVIS 1-2V INDICATIONS: INNER OP TECHNIQUE: Intra-operative view of the pelvis and hip acquired. COMPARISON: [facility], CR, XR PELVIS 1-2V, 06/04/2020, 18:01. FINDINGS: Bones: Intraoperative devices prior to placement of arthroplasty prostheses are in expected positions. No fractures or suspicious bony lesions. Soft tissues: Overlying surgical retractors are present, along with other intraoperative changes. IMPRESSION: Intraoperative image of pelvis and right hip shows right total hip arthroplasty in progress. Dictated by: Wesley Saenz M.D. on 04/27/2022 at 17:24 Approved by: Wesley Saenz M.D. on 04/27/2022 at 17:24
[2022-04-27 16:25] LABS: Hematocrit 29.9 % (36-46); Hemoglobin 10.3 g/dL (12.0-16.0); Mean Corpuscular HGB Conc 34.5 % (30-36); Mean Corpuscular Hemoglobin 31.5 PG (26-34); Mean Corpuscular Volume 91.2 fL (80-100); Platelet Count 158 X10^3/uL (150-400); Red Blood Cell Count 3.28 X10^6/uL (4.0-5.2); Red Cell Distribution Width 13.1 % (11.6-14.8); White Blood Cell Count 5.9 X10^3/uL (4.5-11.0)
[2022-04-27] MEDS: BUPIVACAINE LIPOSOME 266 MG/20 ML VIAL INJ (16:25)
--- NOTE | 2022-04-27 18:08 | SUR.PHASEI ---
pt co heaviness and or pressure on her chest. EKG done and read by Anesthesiologist. Pt denies pain in chest. Wakes after dozing feeling SOB. Pt ausc mutliple times A & P and is clear throughout.
--- NOTE | 2022-04-27 18:11 | SUR.PHASEI ---
Lab came to get 2nd check for T & C to be prepared if needs transfuse
--- NOTE | 2022-04-27 18:20 | DI.RAD.S_ITS ---
PROCEDURE: XR CHEST 1V INDICATIONS: SOB TECHNIQUE: One view of the chest was acquired. COMPARISON: None. FINDINGS: Surgical changes and devices: None. Lungs and pleura: Lungs are clear. No pleural effusions or pneumothorax. Mediastinum: Mediastinal contours appear normal. Heart size is normal. Bones and chest wall: No suspicious bony lesions. Overlying soft tissues appear unremarkable. Lower cervical spine plate and screw instrumentation noted IMPRESSION: No acute cardiopulmonary findings Approved by: Bradly Coleman M.D. on 04/27/2022 at 18:57
[2022-04-27] MEDS: OXYCODONE IR 5 MG TABLET PO ×2 (18:26→19:13)
--- NOTE | 2022-04-27 18:29 | SUR.PHASEI ---
report given to Rosmery KO
--- NOTE | 2022-04-27 18:34 | SUR.PHASEI ---
Assumed care from MAIKEL Thao. Dr Tristan in to see pt, labs drawn by MAIKEL Perez as instructed by Dr. Farfan.
[2022-04-27 18:45] LABS: Hemoglobin 10.4 g/dL (12.0-16.0)
[2022-04-27 18:55] LABS: Creatine Kinase 223 U/L (30-135)
[2022-04-27 19:07] LABS: Troponin I < 0.012 ng/mL (0.01-0.034)
[2022-04-27 19:11] LABS: CKMB % Relative Index 1.4 % (1.5-5.0); Creatine Kinase MB 3.17 ng/mL (<2.37)
--- NOTE | 2022-04-27 19:42 | SUR.PHASEI ---
Dr. Farfan saw pt at bedside, h/h/lab back, reported to Dr. Farfan and Dr. Dietz. Dr. Dietz stated no blood transfusion for now. Pt transported to room 205 on 3/l of nasal cannula 02. Left with María Clifford and left in stable condition.
[2022-04-27] MEDS: LACTATED RINGERS 1,000 ML 125 ML IV (21:40)
[2022-04-27] MEDS: ACETAMINOPHEN 325 MG TABLET 650 MG PO (21:40)
[2022-04-27] MEDS: METOPROLOL ER 50 MG TABLET PO (21:40)
[2022-04-27] MEDS: ATORVASTATIN 20 MG TABLET PO (21:40)
[2022-04-27] MEDS: DULOXETINE 30 MG CAPSULE PO (21:40)
[2022-04-27] MEDS: DOCUSATE 100 MG CAPSULE PO (21:40)
[2022-04-27] MEDS: GABAPENTIN 300 MG CAPSULE PO (21:41)
[2022-04-27] MEDS: METFORMIN HCL 500 MG TABLET PO (21:41)
[2022-04-28] MEDS: HYDROMORPHONE 0.5 MG INJ 0.2 MG IV (00:07)
[2022-04-28] MEDS: OXYCODONE IR 10 MG TABLET PO ×3 (01:26→13:29)
[2022-04-28 04:52] VITALS: BP 121/59; PULSE 78; RESP 18; TEMP 36.6; O2SAT 96
[2022-04-28] MEDS: CEFAZOLIN 2 GM/100 ML PREMIX 100 ML IV (05:28)
--- NOTE | 2022-04-28 07:33 | PM.DS.1 ---
History of Present Illness History of Present Illness Date Patient Seen: 04/28/22 Time Patient Seen: 07:33 Chief complaint: right toltal hip Narrative: Operative Date/Time/Diagnoses Date of procedure: 04/27/22 Time of procedure: 14:00 Pre-op diagnosis: right hip OA Post-op diagnosis: same Procedure & Clinicians Procedure: Right total hip arthroplasty posterior approach, hip abductor repair Same procedure as scheduled: Yes Indications: The patient has had progressively worsening right hip pain with radiographic changes consistent with arthritis. Non-operative management has failed and the patient has requested total hip replacement. The risks, benefits and alternatives to surgery were discussed with the patient prior to proceeding. Risks discussed included, but were not limited to, failure to relieve pain, leg length discrepancy, dislocation, stiffness, infection, nerve damage, deep venous thrombosis, pulmonary embolism, stroke, coma, heart attack, permanent paralysis and , as well as the potential need for eventual revision of the prosthetic. Surgeon: Maria L Chaudhari English Teacher: Trae Hodges Anesthesia Type: General Operative Notes Findings: Severe left hip osteoarthritis, substantial hip abductor tear with multiple tendon involvement with significant retraction and poor quality tendon, adequate stability, soft acetabulum but adequate fixation Closure Type: primary Specimen(s): none sent Prosthetic devices, grafts, tissues, transplants, or devices: Chaudhari and Nephew 54 Redapt, size 8 standard offset anthology, neutral poly liner, +0 femoral neck Oxinium, one 6.5mm screw Applied: drain(s) Estimated Blood Loss (mL): 600 Blood products transfused: none Discharge Providers Provider Discharge Date: 04/28/22 Primary care physician: RODDY Thayer Consults: 04/26/22 15:14 Consult to Anesthesiology Routine Comment: Consulting Provider: Anesthesiologist Reason for consultation: Regional block for post operative pain control 04/27/22 19:33 Consult to Discharge Planning Routine Comment: Consult to Physical Therapy Evaluate & Treat Comment: Physician Instructions: post op CHARLENE protocol Consult to Respiratory Therapy Evaluate & Treat Comment: Physician Instructions: Evaluate and treat Discharge provider: Chiquita Jones PA-C Summary Hospital Course Discharge Diagnosis: s/p RIGHT total hip arthroplasty Hospital Course: Ms Dyson'will hospital course was remarkable for significant blood loss during surgery and nausea and SOB in the recovery area. Cardiac workup was negative, and symptoms resolved without the need for intervention. On the morning of POD# 1 she was feeling well and wanted to go home. She was voiding without difficulty and denied N/V. She was evaluated by PT prior to discharge. Exam Vital Signs (past 8 hours): - 04/28/22 04:52 Temperature 97.9 F Pulse Rate 78 Respiratory Rate 18 Blood Pressure 121/59 L Pulse Oximetry 96 Oxygen Flow Rate 0 Oxygen Delivery Method Nasal Cannula Oxygen Flow Rate 0 Narrative Exam Narrative: 5/5 strength in hip flexors, hamstrings, quadriceps, DF, PF, EHL bilaterally. Sensation to light touch intact in BLE. Calves soft, compressible, nontender. JUDITH dressing functional, CDI. Objective Labs Result Diagrams: 04/27/22 18:40 Labs: Laboratory Results - last 24 hr 04/27/22 04/27/22 04/27/22 16:05 16:05 18:40 WBC 5.9 RBC 3.28 L Hgb 10.3 L 10.4 L Hct 29.9 L 30.0 L MCV 91.2 MCH 31.5 MCHC 34.5 RDW 13.1 Plt Count 158 Total Creatine Kinase CK-MB (CK-2) CK-MB (CK-2) Rel Index Troponin I Blood Type B Positive Antibody Screen Negative 04/27/22 18:40 WBC RBC Hgb Hct MCV MCH MCHC RDW Plt Count Total Creatine Kinase 223 H CK-MB (CK-2) 3.17 H CK-MB (CK-2) Rel Index 1.4 L Troponin I < 0.012 Blood Type Antibody Screen [facility] Medical History (Updated 05/30/20 @ 09:26 by Marcia Busch RN) Anxiety Asthma Fall from ground level (2016) HLD (hyperlipidemia) HTN (hypertension) Osteoarthritis Pre-diabetes Seasonal allergies Short-term memory loss Surgical History (Updated 04/28/22 @ 07:43 by Chiquita Jones PA-C) History of 2 sections History of arthroplasty of left knee (2010) History of arthroplasty of right knee (2009) History of bunionectomy of left great toe History of hysterectomy (~1980) History of lumbar spinal fusion (2006) History of lumbar spinal fusion (2006) History of radial keratotomy History of right salpingo-oophorectomy History of surgery (2008) History of surgical removal of ganglion cyst (2021) History of total left hip arthroplasty (06/04/20) Hx of LASIK Hx of tonsillectomy S/P cervical spinal fusion (2005) Social History household members: spouse Smoking Status: Never smoker alcohol intake: current Discharge Assessment & Plan Assessment and Plan Assessment: s/p RIGHT total hip arthroplasty Acute postop anemia d/t expected surgical blood loss Plan of Treatment: D/C home. Multimodal pain control. Restart cilostazol. Enoxaparin x 10 days for VTE prophylaxis - do not start until 04/29/2022. Follow up in office in 2 weeks. Discharge Plan Discharge Plan Patient Disposition: Home Discharge orders & Medications Discharge Orders: Discharge (Order); Ordered 04/28/22 Ordered By: Chiquita Jones Prescriptions: New oxycodone 5 mg Tablet 5 mg PO Q3HR PRN (Reason: Pain, Moderate (4-6)) Qty: 60 0RF enoxaparin 40 mg/0.4 mL syringe 40 mg SUBCUT DAILY Qty: 1 0RF Rx Instructions: DO NOT START UNTIL 04/29/2022 Continued acetaminophen [Acetaminophen Extra Strength] 500 mg Tablet 500 mg PO Q6H PRN (Reason: Pain) gabapentin 300 mg Capsule 300 mg PO BID duloxetine 30 mg Capsule,Delayed Release(Dr/Ec) 30 mg PO BID cilostazol 100 mg Tablet 100 mg PO BID cetirizine 10 mg Tablet 10 mg PO DAILY hydrocodone-acetaminophen 10-325 mg Tablet 1 tab PO BID PRN (Reason: Pain) fluticasone propionate [Flonase] 50 mcg/actuation Logan,Suspension 2 spray INTRANASAL DAILY PRN (Reason: Seasonal allergies) Rx Instructions: administer into each nostril rosuvastatin 10 mg Tablet 10 mg PO BEDTIME docusate sodium [DOK] 100 mg capsule 100 mg PO DAILY PRN (Reason: Constipation) metformin 500 mg tablet 500 mg PO BID metoprolol succinate 50 mg tablet extended release 24 hr 50 mg PO BEDTIME multivitamin capsule 1 cap PO DAILY cholecalciferol (vitamin D3) 2,000 unit capsule 2,000 unit PO DAILY Follow up/Referrals: Celi Morgan ARNP [Primary Care Provider] - Maria L Chaudhari MD [Physician] - As previously scheduled (Follow up w/ Tamie Melendez PA-C, on 05/12/2022 @ 2:00 pm at [facility] office in [place].) Diet/Activity/Treatments Diet: Diet as Tolerated Activity: Weight bearing as tolerated to right leg. Posterior hip precautions. Cold/Heat Therapy: Ice to hip as needed for pain. Skin/Wound/Dressing Care Report to your healthcare provider any signs of infection, such as:: chills, fever, night sweats, unusual drainage and unusual redness Dressing: May shower w/ dressing in place; battery pack can get wet, but try to keep out of direct shower spray. Batteries will in 5-7 days, at which point you can detach the battery pack and dispose of it. Leave dressing in place until follow up appointment. No bathing or otherwise soaking incision. Call the office if the dressing becomes saturated inside. Visit Report/Discharge Packet Instructions: DI for Hip Replacement Stand Alone Forms: Surgery Discharge Discharge Data Primary Care Provider: Celi Morgan Attending Provider: Maria L Chaudhari
--- NOTE | 2022-04-28 08:17 | PM.EVENT ---
Event Note Date Patient Seen: 04/27/22 Time Patient Seen: 18:00 Event Note (Rapid Response, Code, or fall): PACU: pt c/o SOB in PACU after CHARLENE under GETA, with estimated 1000mL blood loss. Pre-op Hct 38, end of surgery Hct 30, after 3L crystalloid intraop. ECG without ST/T wave changes, troponin negative. No cardiac or pulmonary comorbidities. Repeat Hct in PACU stable at 30. Dressing c/d/i. SOB attributed to acute blood loss intraop, but VSS, Hct stable. Pt required no further narcotic treatment in PACU beyond oxy 5mg (rec'd 2mg dilaudid, 300mcg fentanyl intraop). Pt drowsy but easily rousable. Continuous SPO2 and telemetry ordered. discussed with lead solutions architect anesthesia and lead solutions architect orthopedics. Cleared for transfer to floor.
[2022-04-28 08:52] VITALS: BP 102/58; PULSE 82; RESP 16; TEMP 36.1; O2SAT 99
[2022-04-28] MEDS: polyethylene glycoL 3350 17 GM POWD.PACK PO (09:47)
[2022-04-28] MEDS: GABAPENTIN 300 MG CAPSULE PO (09:48)
[2022-04-28] MEDS: METFORMIN HCL 500 MG TABLET PO (09:48)
[2022-04-28] MEDS: LORATADINE 10 MG TABLET PO (09:48)
[2022-04-28] MEDS: DULOXETINE 30 MG CAPSULE PO (09:48)
[2022-04-28] MEDS: CHOLECALCIFEROL (VITAMIN D3) 1,000 UNIT TABLET 2000 UNIT PO (09:48)
[2022-04-28] MEDS: DOCUSATE 100 MG CAPSULE PO (09:48)
[2022-04-28] MEDS: MULTIVITAMIN 1 TABLET 1 TAB PO (09:48)
[2022-04-28] MEDS: HYDROCODONE/ACET 10/325 TABLET 1 TAB PO (10:49)
--- NOTE | 2022-04-28 10:51 | PT.IIE ---
Current Diagnoses Unilateral primary osteoarthritis, right hip (04/27/22) Presence of unspecified artificial hip joint (04/27/22) Surgery Performed Operation Date: 04/27/22 14:15 Actual Procedures p Total Hip Arthroplasty(Right) - Maria L Chaudhari MD Surgical History (Last Reviewed 04/27/22 @ 12:57 by Mary Jane Fuentes, MAIKEL) History of 2 sections History of arthroplasty of left knee (2010) History of arthroplasty of right knee (2009) History of bunionectomy of left great toe History of hysterectomy (~1980) History of lumbar spinal fusion (2006) History of lumbar spinal fusion (2006) History of radial keratotomy History of right salpingo-oophorectomy History of surgery (2008) History of surgical removal of ganglion cyst (2021) History of total left hip arthroplasty (06/04/20) Hx of LASIK Hx of tonsillectomy S/P cervical spinal fusion (2005) Medical History (Last Updated 05/30/20 @ 09:26 by Marcia Busch RN) Anxiety Asthma Fall from ground level (2016) HLD (hyperlipidemia) HTN (hypertension) Osteoarthritis Pre-diabetes Seasonal allergies Short-term memory loss Physical Therapy Inpatient Evaluation/Re-Eval M1 PT/OT-IP Prior Functional Status Start: 04/28/22 13:46 Freq: NEEDED Status: Active Protocol: Document 04/28/22 10:51 DLM (Rec: 04/28/22 14:02 DLM [id number]) Medical Review Prior Functional Status Medical History Reviewed Yes Diet/Fluid Consistency Regular Communication WFL Mobility and Gait Independent with cane Activities of Daily Living and IADL's Independent Social History Household Members spouse Living Arrangements House Number of Floors (Floors) Two Floors Number of Stairs To Enter/Railing? stair lift to second floor, 3 MELLISA with bilateral rails Home Environment High Toilet,Walk in Shower Home Equipment Front Wheel Walker,Straight Cane,Raised Toilet Seat w/ Armrests,Shower Seat with Backrest,Grab Bars Near Toilet ,Grab Bars In Shower Employment Status Retired Additional Social History Comment hx left CHARLENE 05/2020 M2 PT-IP Current Condition Start: 04/28/22 13:46 Freq: NEEDED Status: Active Protocol: Document 04/28/22 10:51 DLM (Rec: 04/28/22 14:02 [facility] [id number]) Physical Therapy Current Condition Current Condition Evaluation Date 04/28/22 Treatment Diagnosis right post CHARLENE, impaired mobility/gait Onset Date 04/27/22 M3 PT-IP Subjective Start: 04/28/22 13:46 Freq: NEEDED Status: Active Protocol: Document 04/28/22 10:51 DLM (Rec: 04/28/22 14:02 DL [id number]) Subjective Physical Therapy Visit Type Type Initial Evaluation Visit Start Time 09:40 Visit Stop Time 10:51 Total Visit Minutes 71 Number of ECONOMIC ANALYSIS DIRECTOR Visits 0 Physical Therapy Visit Comments Patient Comments She reports recovering well after her left CHARLENE Patient Goals discharge home M4 PT-IP Mobility and Gait Start: 04/28/22 13:46 Freq: NEEDED Status: Active Protocol: Document 04/28/22 10:51 DLM (Rec: 04/28/22 14:02 [facility] [id number]) PT-Bed Mobility Assessment Supine to Sit Supine to Sit Minimal Assistance Sit to Supine Sit to Supine Minimal Assistance Scooting Scooting to Edge of Bed Independent PT-Transfer Assessment Sit to and From Stand Sit to and from Stand Standby Assistance,Contact Guard Assistance,Use of Upper Extremities Equipment Transfer Assistive Device Gait Belt,Front Wheeled Walker Transfers Transfer Destination Bed,Chair Transfer Technique Stand Step Pivot Transfer Ability Level of Assist Standby Assistance,Contact Guard Assistance,Use of Upper Extremities Comments Mobility Comments Pt shows good understanding of how to kick right LE during sit-stand to manage her hip precautions Gait Assessment Gait Gait Assistance Required: Standby Assistance Distance (Feet) 40 Able to Maintain Weight Bearing Status Yes During Gait Assistive Devices Assistive Device Gait Belt,Front Wheeled Walker Gait Deviations General Gait Pattern Antalgic,Decreased Stride Length Factors Limiting Gait Function Factors Limiting Gait Function Decreased Activity Tolerance, Decreased Strength,Pain Comments Gait Comments pt demonstrates safe use of FWW and good use of UE's to manage right LE soreness Stair Climbing Assessment Evaluation Level of Assist On Stairs Standby Assistance Devices Stair Climbing Assistive Devices Left Railing,Right Railing Technique/Endurance Stair Climbing Direction Ascend and Descend Stair Climbing Technique Step to Step Number of Steps Climbed 3 Query Text: Stair Climbing Set # Repetitions (reps) 1 Comments Stair Climbing Comments tolerated stairs well with bilateral UE support on rails PT-Balance Assessment Sitting Balance and Reactions Static Sitting Balance Ability Good Dynamic Sitting Balance Ability Good Standing Balance and Reactions Static Standing Balance Ability Good Dynamic Standing Balance Ability Good Device Used FWW M5 PT-IP Objective Assessments Start: 04/28/22 13:46 Freq: NEEDED Status: Active Protocol: Document 04/28/22 10:51 DLM (Rec: 04/28/22 14:02 DL [id number]) Orientation Orientation/Cognition Level of Alertness Alert Orientation Name,Age,Birthday,Month,Date, Year,Day of Week,Place, Situation Language Function Ability No Deficits Noted Safety Awareness Understands Safety Issues Memory Description No Deficits Noted Gross Range of Motion Upper Extremity ROM Assessment Within Functional Limits Lower Extremity ROM Assessment Right Impaired Impairments post hip precautions and pain limit right Hip Strength Upper Extremity Strength Assessment Within Functional Limits Lower Extremity Strength Assessment Right Impaired Hip flexion 3-/5, abduction not tested Knee ext 3+/5 Ankle DF 4+/5 Comments Strength Comments pain limits functional strength right LE s/p CHARLENE Coordination Assessment Gross Coordination Gross Coordination WNL Sensation Assessment Sensation Gross Sensation WNL Muscle Tone Muscle Tone WNL Yes M6 PT-IP Treatment Start: 04/28/22 13:46 Freq: NEEDED Status: Active Protocol: Document 04/28/22 10:51 DLM (Rec: 04/28/22 14:02 [facility] [id number]) Physical Therapy Treatment Exercises Exercises Ankle Pumps,Gluteal Sets,Quad Sets,Heel Slides,Supine Hip Abduction Education Education Provided Precautions,Weight Bearing Status,Post-Op Packet,Safety Other Treatments Other Treatment Performed assistance provided for exercises as needed, answered pt's questions No family present during therapy today. M7 PT-IP Assessment and Plan Start: 04/28/22 13:46 Freq: NEEDED Status: Active Protocol: Document 04/28/22 10:51 DLM (Rec: 04/28/22 14:02 [facility] [id number]) PT Summary Assessment and Plan Potential Rehabilitation Potential Good Status of Condition at Evaluation Evolving Summary Impairments Pain,ROM,Strength,Balance,Bed Mobility,Transfers,Gait, Activity Tolerance Assessment Summary Elisa is alert and shows good effort with therapy s/p CHARLENE. She reports increased pain in right hip with activity. She feels she has been having difficulty managing the pain since surgery. She tolerated short distances of gait well with the FWW. She was able to go up and down 3 steps with bilateral rails. She was educated in her precautions and HEP. Pt requested back to bed to rest after this therapy visit. Ice was applied to surgical area to assist with pain management. Pt appears safe to discharge home with assistance from her Spouse when medically cleared. Pt voicing concern over being able to manage her pain at home. Goals Bed Mobility Goal Independent Transfer Goal Independent,Front Wheeled Walker Gait Goal Independent,Front Wheel Walker Gait Distance 100 feet Other Goals up and down 3 steps with bilateral rails with SBA Days to Meet Goals 2 Frequency of Treatment Frequency Of Treatment Twice a Day Treatment Plan Physical Therapy Treatment Plan Bed Mobility Training,Transfer Training,Gait Training, Therapeutic Exercise,Balance Retraining,Post Op Education, Discharge Planning,Hot or Cold Pack,Neuromuscular Re-ed Precautions Posterior Hip Precautions No Hip Flexion > 90 degrees,No Hip Internal Rotation,No Hip Adduction Weight Bearing Status Weight Bearing Status Weight Bear as Tolerated Recommendations To Nursing Amount of Assist Needed 1 Person Assist Discharge Recommendations PT Discharge Recommendations Home with Assistance Other Discharge Recommendations Spouse will help her at home. Her mobility/gait appears safe to discharge home today. Transportation Needs at Discharge Private Vehicle
[2022-04-28] MEDS: ACETAMINOPHEN 325 MG TABLET 650 MG PO ×3 (11:32→17:13)
[2022-04-28] MEDS: HYDROMORPHONE 2 MG TABLET PO (11:32)
[2022-04-28 12:20] VITALS: BP 101/51; PULSE 85; RESP 17; O2SAT 97
--- NOTE | 2022-04-28 14:55 | PT-IP ANOTE ---
Unclear if pt will be d/c this PM, however she has been cleared by PT. Checked on pt this PM at 14:55, pt refused PT stating she was just able to get comfortable and has been experiencing high levels of pain today. Does confirm she feels safe to return home w/ spouse assisting and outpatient rehab.
--- NOTE | 2022-04-28 15:58 | CM.DANOTE ---
Ernestina is a 76 yo female who was admitted on 04/27/22 for RTHA. Pt has [facility] and [employer] for insurance and her PCP is Dr. Celi Morgan. EMR was reviewed. Per Ortho, pt tolerated procedure well and likely stable for d/c home today pending PT eval. Per PT, recommending safe d/c home with spouse assist and outpt PT and pt refused afternoon PT as she states she has pain currently. SW met briefly bedside with pt and explained role and pt confirms she lives at home in [place] with her spouse and is retired and independent with ADL's at baseline. Spouse plans to provide transport at d/c and pt and spouse completed some CG training and are comfortable with plan of d/c to home but pt may have pain management issues and might remain overnight. Pt denies any hx of HH or SNF and does not anticipate needs at discharge. Plan: SW to follow for plan of d/c to home tonight vs tomorrow pending pain via spouse POV and outpt PT. No SW needs at this time, please refer if indicated. JENNIFER Mayen Discharge Planning/Care Management Pre-Anesthesia Assessment Start: 04/20/22 08:28 Freq: Status: Active Protocol: Document 04/20/22 08:28 [facility] (Rec: 04/20/22 09:31 CAB [id number]) Pre-Anesthesia Assessment Preferred Name Elisa Patient Information Reviewed Via Phone Assessment Assessment Completed With Patient Diagnostic Results BMP/CMP,CBC,EKG,Urinalysis Comment Outside labs/ECG scanned, COVID screen @ [facility] 04/26/22 Primary Care Provider Celi Morgan Seen Specialist in Last 12 Months Yes Specialist Seen Orthopedist,Other Primary Language [place] Preferred Language [place] Height 171.45 cm Weight 107.955 kg Body Mass Index (BMI) 36.7 Hearing Ability Normal Visual Assist Magnifying Glass Dentition Type Teeth, Natural Present Barriers to Learning Memory Hx Anesthesia Reactions Yes: Delayed awakening. I have also woken during surgeries before Hx Family Anesthesia Reaction Yes: Mother & daughter are very sensitive, delayed awakening Hx Malignant Hyperthermia No Hx Blood Transfusions Yes: s/p second lumbar fusion Hx Blood Transfusion Reaction No Anesthesia Review Requested No Filler Mixer No alcohol intake current alcohol intake frequency a few times a month Smoking Status Never smoker Substance Use Type does not use Pain Present Pain Reported Musculoskeletal Symptoms Abnormal Gait,Back Pain, Difficulty Walking,Joint Pain, Neck Pain History of Falling (Recent or History of Yes ) Patient is completely paralyzed or No completely immobile Mental Status Oriented to own ability Is patient on oxygen? No Does patient have GALARZA/SOB No Hx Sleep Apnea No Currently Taking a Beta Heather Yes: Metoprolol Can You Climb a Flight of Stairs Without Yes SOB Hx Chest Pain No Hx SOB No Hx Syncope or Dizziness No Anti-Coagulant Therapy No Has a Supervisor Sewing Room No Cardiac Testing No Hx Pacemaker/ICD No Pacemaker Rep Required? No Cardiac Clearance Received Not Applicable Diet Type At Home Regular dysphagia No Urinary Catheter Present No Hx Urinary Self Catheterization No Diabetes No: Pt states told Prediabetic HgbA1C 6.7 Patient No Lactating No Hx Drug Resistant Organism No Presence of External or Internal Medical Yes: Lumbar/cervical hardware, Devices left toe, thierry knee prosthesis , right hipm Have you had any close contact with No someone diagnosed with COVID-19? Received a COVID vaccine? Yes Received all doses? Yes Marital Status Lives With spouse Prior Living Arrangements House Number of Floors (Floors) Two Floors Support System Spouse Does the Patient Have Assistance After Yes Surgery Patient Discharge Plan Description Return Home Comment Pt not advised on length of stay per surgeon Feels Safe in Current Environment Yes Been Physically Hurt or Threatened By a No Person in Current Environment Do you have thoughts of harming yourself None or others? Are you currently considering suicide? No Do you have a plan to hurt yourself or No Plan others? Do You Have Any Spiritual Beliefs That No May Affect Your HC Choices? Do You Have Any Cultural Practices That No May Affect Your HC Choices? Who Can We Speak to About Patient's Care Family, friends Identifying Code for Release of Patient Declines to issue Information Health Care Proxy/Next of Kin Akbar () Health Care Proxy Emergency Contact Name Akbar () Emergency Contact Advance Directives? Yes Advance Directives on File No Requested Patient Bring Advanced Yes Directives DOS Power of Electronic Test Technician Yes Power of Electronic Test Technician Name Akbar () Power of Electronic Test Technician PAC Instructions Diabetes instructions,Do not shave/clip surgical site, Durable medical equipment, Medications to take/avoid, Nasal antibiotic,No ETOH/ petroleum product on skin DOS, NPO,Pre-surgical wash,Sensory aids,Sturdy shoes/comfortable clothes,Do not bring valuables and remove jewelry
[2022-04-28] MEDS: OXYCODONE IR 5 MG TABLET PO (17:13)
== END 2022-04-28 18:38 | disposition home or self-care (01) ==
LOC: OR 12:39 → AC 12:41
PROVIDERS: Anesthesiology; PCP Nurse Practitioner; Referring Provider Orthopaedic Surgery; Visit Provider Orthopaedic Surgery
PROC: 0SR90JZ Replacement of Right Hip Joint with Synthetic Substitute, Open Approach (ICD-10-PCS; CPT 27130; principal; 2022-04-27 14:15)
DX: M16.11 Unilateral primary osteoarthritis, right hip (principal); E11.9 Type 2 diabetes mellitus without complications; I10 Essential (primary) hypertension; E78.5 Hyperlipidemia, unspecified; F41.9 Anxiety disorder, unspecified; E66.9 Obesity, unspecified; Z68.35 Body mass index [BMI] 35.0-35.9, adult; Z79.84 Long term (current) use of oral hypoglycemic drugs; Z96.642 Presence of left artificial hip joint; Z98.1 Arthrodesis status
CPT/HCPCS: 27130; 36415; 71045; 72170; 73502; 82550; 82553; 82962; 84484; 85014; 85018; 85027; 86850; 86900; 86901; 93005; 97110; 97116; 97162; 97530; C1776; C9290; J0171; J0690; J1100; J1170; J2250; J2405; J2704; J3010